=== PATIENT | male | born 1980 | race Caucasian/White ===

== ENCOUNTER 2016-09-06 17:29 | Emergency (ER) | payer SELFPAY ==
[~2016-09-06] VITALS: Ht 170.2 cm; Wt 81.6 kg
--- NOTE | 2016-09-06 17:29 | NUR ---
Patient BIBA ACLS, transferred to bed 2. Dr. Alvarez and RN evaluating patient at bedside.
[2016-09-06 17:35] VITALS: BP 152/113
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
[2016-09-06] MEDS ORDERED: NACL 0.9% 1,000 ML IV SCH (17:42)
[2016-09-06] MEDS ORDERED: ONDANSETRON 4 MG/2 ML VIAL IVP ONE (17:45)
[2016-09-06] MEDS ORDERED: NACL 0.9% 1,000 ML IV ONE (17:45)
--- NOTE | 2016-09-06 19:15 | NUR ---
Pt report given to NANCY FERGUSON. Transfer of care at this time.
--- NOTE | 2016-09-06 19:16 | NUR ---
RECEIVED REPORT FROM ROSANA CRUZ.
--- NOTE | 2016-09-06 19:50 | NUR ---
Dr. Craig evaluating patient at bedside.
[2016-09-06 21:00] VITALS: BP 145/86
--- NOTE | 2016-09-06 21:00 | NUR ---
Patient discharged with v/s stable. Written and verbal after care instructions given and explained BY DR BUTT. Patient verbalized understanding. Ambulatory with steady gait. All questions addressed prior to discharge. Advised to follow up with PMD.
== END 2016-09-06 21:00 | disposition home or self-care (01) ==
LOC: MED 17:29
DX: F15.129 Other stimulant abuse with intoxication, unspecified (principal); F10.10 Alcohol abuse, uncomplicated; R41.82 Altered mental status, unspecified; R03.0 Elevated blood-pressure reading, without diagnosis of hypertension; T43.625A Adverse effect of amphetamines, initial encounter; Y90.0 Blood alcohol level of less than 20 mg/100 ml; Y92.89 Other specified places as the place of occurrence of the external cause
CPT/HCPCS: 36415; 80053; 80305; 81001; 82150; 83690; 85025; 96361; 96374; 99284; G0482; J2405; J7030

== ENCOUNTER 2020-05-04 11:42 | Emergency (ER) | payer MEDICAID ==
[~2020-05-04] VITALS: Ht 167.6 cm; Wt 90.3 kg
[2020-05-04 12:11] VITALS: BP 119/93
--- NOTE | 2020-05-04 12:21 | NUR ---
39 y/o male from home c/o right shoulder pain x 1 month. Pt believes he slept wrong and has increased pain since waking 1 month ago. Denies trauma/injury. No deformities noted. No bruising/redness to area. 7/10 constant aching. Skin warm, dry, intact. Range of motion intact. VSS medhx: denies
--- NOTE | 2020-05-04 13:43 | NUR ---
PATIENT LEFT WITHOUT BEING SEEN BY DR. BEACH. NO FURTHER CARE PROVIDED FOR PATIENT. PATIENT STATED HE WOULD RETURN IN ABOUT ONE HOURS. 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 DR. BEACH MADE AWARE.
== END 2020-05-04 13:43 | disposition left against medical advice (07) ==
LOC: MED 11:42
DX: M25.511 Pain in right shoulder (principal); Z53.21 Procedure and treatment not carried out due to patient leaving prior to being seen by health care provider
CPT/HCPCS: 73030; Q0092

== ENCOUNTER 2020-06-05 02:50 | Emergency (ER) | payer MEDICAID ==
[~2020-06-05] VITALS: Ht 162.6 cm; Wt 86.2 kg
[2020-06-05 02:53] VITALS: BP 141/90
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
--- NOTE | 2020-06-05 03:34 | NUR ---
PT AMBUALTED TO BED 4 WITH STEADY GAIT.
--- NOTE | 2020-06-05 03:48 | NUR ---
ERMD AT BEDSIDE EVALUATING PT.
[2020-06-05] MEDS ORDERED: methylPREDNISolone SS 125 MG/2 ML VIAL IM ONE (03:50)
[2020-06-05] MEDS ORDERED: diphenhydrAMINE 50 MG/ML VIAL IM ONE (03:50)
[2020-06-05 04:35] VITALS: BP 132/88
--- NOTE | 2020-06-05 04:35 | NUR ---
Patient discharged with v/s stable. Written and verbal after care instructions given and explained. Patient alert, oriented and verbalized understanding of instructions. Ambulatory with steady gait. All questions addressed prior to discharge. ID band removed. Patient advised to follow up with PMD. Rx of PREDNISONE, BENADRYL given. Patient educated on indication of medication including possible reaction and side effects. Opportunity to ask questions provided and answered.
== END 2020-06-05 04:35 | disposition home or self-care (01) ==
LOC: MED 02:50
DX: L50.9 Urticaria, unspecified (principal); R03.0 Elevated blood-pressure reading, without diagnosis of hypertension; F15.90 Other stimulant use, unspecified, uncomplicated
CPT/HCPCS: 96372; 99284; J1200; J2930

== ENCOUNTER 2020-06-05 21:21 | Emergency (ER) | payer MEDICAID ==
[~2020-06-05] VITALS: Ht 162.6 cm; Wt 86.2 kg
[2020-06-05 21:22] VITALS: BP 143/90
--- NOTE | 2020-06-05 21:30 | NUR ---
PT TAKEN TO BED 12
--- NOTE | 2020-06-05 21:35 | NUR ---
39 y/o male presented to the ED C/O generalized rash with itching. pt was seen here yesterday for an allergic reaction. pt denies having any allergies. pt is not sob, no throat swelling noted, lung sounds clear throughout, no abd pain, negative n/v diarrhea, generalzied rash visible. pt denies pain. pmh: none ax: none
[2020-06-05] MEDS ORDERED: diphenhydrAMINE 50 MG/ML VIAL IM ONE (22:00)
[2020-06-05] MEDS ORDERED: EPINEPHrine 1:1000 - 1 MG/ML AMP SUBQ ONE (22:00)
--- NOTE | 2020-06-05 22:15 | NUR ---
pt is sitting upright in bed, no distress noted at this time. pt connected to the cardiac monitor technician. bed is locked and in lowest position. side rails x1
--- NOTE | 2020-06-05 23:23 | NUR ---
pt is sitting upright with hob elevated, pt is resting. visible rise and fall of chest noted, pt is connected to the monitor technician. pt is not in any acute distress at this time. side rails x1. will continue to monitor. no distress noted.
[2020-06-06 00:10] VITALS: BP 117/75
== END 2020-06-06 00:10 | disposition home or self-care (01) ==
LOC: MED 21:21
DX: L50.0 Allergic urticaria (principal)
CPT/HCPCS: 96372; 99284; J0171; J1200

== ENCOUNTER 2020-06-26 13:02 | Emergency (ER) | payer MEDICAID ==
[~2020-06-26] VITALS: Ht 162.6 cm; Wt 86.2 kg
[2020-06-26 13:26] VITALS: BP 130/90
--- NOTE | 2020-06-26 14:29 | NUR ---
patient called at 1400 and then again at this time. left without being seen.
== END 2020-06-26 14:29 | disposition home or self-care (01) ==
LOC: MED 13:02
DX: R07.9 Chest pain, unspecified (principal); Z53.21 Procedure and treatment not carried out due to patient leaving prior to being seen by health care provider
CPT/HCPCS: 93005; 99281

== ENCOUNTER 2020-06-26 23:22 | Emergency (ER) | payer MEDICAID ==
[~2020-06-26] VITALS: Ht 157.5 cm; Wt 90.7 kg
[2020-06-26 23:40] VITALS: BP 135/90
--- NOTE | 2020-06-26 23:43 | NUR ---
TO LOBBY A/W BED AMBULATORY
--- NOTE | 2020-06-27 03:17 | NUR ---
LEFT WITHOUT BEING SEEN
== END 2020-06-27 03:00 | disposition home or self-care (01) ==
LOC: MED 23:22
DX: R07.9 Chest pain, unspecified (principal); Z53.21 Procedure and treatment not carried out due to patient leaving prior to being seen by health care provider
CPT/HCPCS: 93005; 99281

== ENCOUNTER 2021-04-10 21:24 | Emergency (ER) | payer MEDICAID ==
[~2021-04-10] VITALS: Ht 167.6 cm; Wt 99.8 kg
[2021-04-10 21:47] VITALS: BP 159/89
--- NOTE | 2021-04-10 21:51 | NUR ---
AMBULATED TO BED FROM TRIAGE
--- NOTE | 2021-04-10 21:56 | NUR ---
40 YO M BIB SELF WITH C/C OF LOWER BACK PAIN 9/10 ACHING X1WK S/P LIFTING BOXES. PT STATES PAIN IS CONSTANT AND NONRAD. INCREASED ACTIVITY OR STAYING TOO LONG IN ONE POSITION CAUSES MORE PAIN. DENIES TAKING MEDICATION FOR PAIN. STATES HE IS UNABLE TO LAY FLAT D/T THE PAIN HE GETS TO GET UP. DENIES HX, RX AND ALLERG
--- NOTE | 2021-04-10 22:39 | NUR ---
PT IN STABLE CONDITION, SITTING UP IN BED. PT IS IN STABLE CONDITION. ALL NEEDS MET AT THIS TIME. SIDE RAILS X1, BED LOCKED IN LOWEST POSITION.
[2021-04-10] MEDS ORDERED: KETOROLAC 60 MG/2 ML VIAL IM ONE (22:50)
[2021-04-10] MEDS ORDERED: CYCLOBENZAPRINE 10 MG TAB PO ONE (22:50)
[2021-04-10] MEDS ORDERED: CYCL-711 PO (22:53)
[2021-04-10] MEDS ORDERED: KETO10TA2 PO (22:53)
[2021-04-10 23:04] VITALS: BP 159/89
--- NOTE | 2021-04-10 23:04 | NUR ---
Patient discharged with v/s stable. Written and verbal after care instructions given and explained. Patient alert, oriented and verbalized understanding of instructions. Ambulatory with steady gait. All questions addressed prior to discharge. ID band removed. Patient advised to follow up with PMD. Rx of FLEXERIL AND KETOROLAC given. Patient educated on indication of medication including possible reaction and side effects. Opportunity to ask questions provided and answered.
== END 2021-04-10 23:04 | disposition home or self-care (01) ==
LOC: MED 21:24
DX: M54.5 Low back pain (principal); Z79.899 Other long term (current) drug therapy
CPT/HCPCS: 96372; 99283; J1885

== ENCOUNTER 2021-07-22 11:59 | Emergency (ER) | payer MEDICAID ==
[~2021-07-22] VITALS: Ht 165.1 cm; Wt 95.3 kg
[~2021-07-22 11:59] MED LIST: CYCL-711 PO; KETO10TA2 PO
[2021-07-22 12:20] VITALS: BP 148/94
--- NOTE | 2021-07-22 13:41 | NUR ---
PT CALLED BY MD, NO ANSWER. PT LWBS.
== END 2021-07-22 13:41 | disposition left against medical advice (07) ==
LOC: MED 11:59
DX: R10.13 Epigastric pain (principal); Z53.21 Procedure and treatment not carried out due to patient leaving prior to being seen by health care provider

== ENCOUNTER 2022-02-04 22:53 | Emergency (ER) | payer MEDICAID ==
--- NOTE | 2022-02-04 23:20 | NUR ---
CALLED PT IN LOBBY AND OUTSIDE NO RESPONSE
--- NOTE | 2022-02-04 23:30 | NUR ---
CALLED PT NO RESPONSE
--- NOTE | 2022-02-04 23:40 | NUR ---
CALLED PT NO RESPONSE
--- NOTE | 2022-02-04 23:43 | NUR ---
PATIENT LEFT WITHOUT BEING SEEN BY DR. RIVERA. NO FURTHER CARE PROVIDED FOR PATIENT.
== END 2022-02-04 23:43 | disposition left against medical advice (07) ==
LOC: MED 22:53
DX: R10.9 Unspecified abdominal pain (principal); Z53.21 Procedure and treatment not carried out due to patient leaving prior to being seen by health care provider

== ENCOUNTER 2023-11-29 14:54 | Emergency (ER) | payer MEDICAID ==
[~2023-11-29] VITALS: Ht 167.6 cm; Wt 104.3 kg
[2023-11-29 15:12] VITALS: BP 129/84; PULSE 125; RESP 21; TEMP 98.2; O2SAT 97
[2023-11-29 15:41] LABS: APPEARANCE,URINE CLEAR (CLEAR); BILIRUBIN,URINE 1+ (NEGATIVE); BLOOD, URINE NEGATIVE (NEGATIVE); COLOR,URINE YELLOW (YELLOW); LEUKOCYTE ESTERASE ,URINE NEGATIVE (NEGATIVE); NITRITE, URINE NEGATIVE (NEGATIVE); PROTEIN,URINE NEGATIVE (NEGATIVE); UGLUCOSE NEGATIVE (NEGATIVE); UROBILINOGEN,URINE 0.2 EU/dL (0.2 - 1)
[2023-11-29 15:47] LABS: ICTOTEST NEGATIVE (NEGATIVE)
[2023-11-29] MEDS: NACL 0.9% 1,000 ML IV SCH (15:53)
[2023-11-29 16:02] LABS: BASOPHILS % (AUTO) 0.2 % (0.0-2.0); EOSINOPHILS % (AUTO) 0.3 % (0.0-4.0); HEMOGLOBIN 16.9 g/dL (12.0-18.0); LYMPHOCYTES # (AUTO) 1.2 K/uL (2.0-11.5); LYMPHOCYTES % (AUTO) 9.7 % (20.5-51.1); MEAN CORPUSCULAR HEMOGLOBIN 31 pg (27-31); MEAN CORPUSCULAR HGB CONC 35 g/dL (33-37); MEAN CORPUSCULAR VOLUME 88.6 fL (80-94); MONOCYTES # (AUTO) 0.9 K/uL (0.8-1.0); MONOCYTES % (AUTO) 7.4 % (1.7-9.3); NEUTROPHILS # (AUTO) 9.9 K/uL (1.8-7.7); NEUTROPHILS % (AUTO) 82.4 % (42.2-75.2); PLATELET COUNT (AUTO) 161 K/uL (140-450); RED BLOOD CELL COUNT(AUTO) 5.42 MIL/uL (4.20-6.10); RED CELL DISTRIBUTION WIDTH 13.1 % (11.6-13.7)
[2023-11-29 16:25] LABS: ANION GAP 13.7 (8-16); CALCIUM 8.8 mg/dL (8.5-10.1); CARBON DIOXIDE 26.7 mmol/L (21-32); CREATININE 0.9 mg/dL (0.6-1.3); POTASSIUM 3.4 mmol/L (3.5-5.1)
[2023-11-29 16:29] LABS: ALANINE AMINOTRANSFERASE 49 U/L (12-78); ALBUMIN 3.8 g/dL (3.4-5.0); ALKALINE PHOSPHATASE 139 U/L (50-136); ASPARTATE AMINOTRANSFERASE 16 U/L (15-37); BILIRUBIN,DIRECT 0.2 mg/dL (0.0-0.3); LIPASE 19 U/L (16-77); TOTAL BILIRUBIN 0.9 mg/dL (0.0-1.0); TOTAL PROTEIN, SERUM 7.5 g/dL (6.4-8.2)
[2023-11-29] MEDS: ONDANSETRON 4 MG/2 ML VIAL IVP ONE (16:35)
[2023-11-29] MEDS: FAMOTIDINE 20 MG/2 ML VIAL IVP ONE (16:35)
[2023-11-29 16:37] LABS: LACTIC ACID 2.2 mmol/L (0.4-2.0)
[2023-11-29] MEDS: NACL 0.9% 1,000 ML IV ONE (17:01)
[2023-11-29 17:04] LABS: INR 1.05 (0.8-1.2); PARTIAL THROMBOPLASTIN TIME 27.5 secs (22-35.6)
[2023-11-29] MEDS: ALUMINUM HYD/MAG/SIMETHICONE 30 ML UDC PO ONE (17:19)
[2023-11-29] MEDS ORDERED: OMEP40EC23 PO (17:52)
[2023-11-29 19:06] VITALS: BP 122/81; PULSE 110; RESP 22; TEMP 98.2; O2SAT 97
== END 2023-11-29 19:00 | disposition home or self-care (01) ==
LOC: MED 14:54
DX: R19.7 Diarrhea, unspecified (principal); R10.13 Epigastric pain; E86.0 Dehydration; Z79.899 Other long term (current) drug therapy
CPT/HCPCS: 36415; 74176; 80048; 80076; 81003; 83605; 83690; 84484; 85025; 85610; 85730; 87040; 93005; 96361; 96374; 96375; 99285; J2405; J3490; J7030